=== PATIENT | female | born 1980 | race Caucasian/White ===

== ENCOUNTER → 2016-10-27 | Outpatient (CLI) | payer MEDICAID ==
[~2016-10-27] MED LIST: CEPH-583 PO; DIPH1TAB PO; DIPH1TAB24 PO; DIPH25CA84 PO; ESTR2TAB23 PO; LAMO25TA8 PO; LIDO20SO SSP; METO-277 PO; PANT40TA PO; PROM25TA7 PO; TOPI100T43 PO; VENL75TA4 PO
== END ==
LOC: NEU 12:27
PROVIDERS: ATTEND Family Medicine
DX: G40.409 Other generalized epilepsy and epileptic syndromes, not intractable, without status epilepticus (principal)
CPT/HCPCS: 95816

== ENCOUNTER 2016-10-31 21:16 | Emergency (ER) | payer MEDICAID ==
[~2016-10-31] VITALS: Ht 175.3 cm; Wt 98.7 kg
[~2016-10-31 21:16] MED LIST changes: -DIPH1TAB24 PO; -LAMO25TA8 PO; -LIDO20SO SSP; -PROM25TA7 PO; -VENL75TA4 PO
--- OUTSIDE RECORDS SUMMARY | 2016-10-31 21:20 | XMS REPORT | Continuity of Care Document ---
Author Author Via [facility] [employer] Organization Via [facility]. Address Unknown Phone Unavailable Allergies Active Description Code Type Severity Reaction Onset Reported/Identified Relationship to Patient Clinical Status Yes Lorazepam X357 Drug Allergy Unknown N/A 11/18/2000 Yes Food Allergies: Food Allergies: Drug Allergy Unknown N/A 04/27/2011 Yes Medication Allergies: Medication Allergies: Drug Allergy Unknown N/A 04/27/2011 Yes Haloperidol X485 Drug Allergy Unknown "I get crazy" 09/29/2014 Yes PCN (penicillin) X20 Drug Allergy Unknown Rash 09/29/2014 Yes Prochlorperazine X490 Drug Allergy Unknown can't talk, los 09/29/2014 Medications Problems Date Dx Coded Attending Type Code Diagnosis Diagnosed By 09/29/2014 A 368.11 09/29/2014 W 793.0 Procedures Results Encounters ACCT No. Visit Date/Time Discharge Status Pt. Type Provider Facility Loc./Unit Complaint [id number] 01/31/2014 11:58:00 2013 23:59:59 [facility] Outpatient [id number] 09/29/2014 07:56:00 Document Registration
[2016-10-31 21:53] VITALS: Ht 175.3 cm; Wt 98.7 kg
--- NOTE | 2016-10-31 22:21 | ERPDOC ---
Departure Disposition Decision Date: Nov 01, 2016 Disposition Decision Time: 00:53 (MADDIE YOUSIF APRN) Disposition: 01 DISCHARGED HOME, SELF-CARE Impression Impression (MADDIE YOUSIF APRN) Impression: Primary Impression: Gastroenteritis Severity: Moderate (MADDIE YOUSIF APRN) Condition: Improved Seen By: Mid-level only (MADDIE YOUSIF APRN) Referrals: UMA JEFFERS MD (Family) Patient Instructions: Gastroenteritis (ED) Problems/Meds/Labs Reviewed?: Yes Medications reviewed and manag: Yes (MADDIE YOUSIF APRN) Additional Instructions: Take Phenergan every 6 hours for nausea and vomiting. You may take 1-2 [place] 5/325 mg as needed for abdominal cramping. Clear liquids tonight and then you may advance her diet as tolerated tomorrow. Follow treatment plan. Follow with your PCP early next week if your symptoms are not improving for reevaluation. Follow up care ordered?: Yes Mental Status: Alert, Oriented (MADDIE YOUSIF APRN) Scripts Promethazine HCl (Promethazine HCl) 25 Mg Tablet 1 TAB-CAP PO Q6HPRN, #30 Prov: MADDIE YOUSIF APRN 11/01/16 HPI - Abdominal Pain General Chief Complaint: Abdominal Pain Stated Complaint: ABD PAIN, VOMITING Time Seen by Provider: 22:17 Source: patient (MADDIE YOUSIF APRN) Time Seen by Provider: 22:17 (KELLY STEPHENS MD) HPI - Abdominal Pain Initial Comments 36 YO F presents to ED with complaint of generalized malaise, sore throat, cough , body aches, nausea, vomiting, diarrhea, generalized abdominal pain and generalized body aches. Patient is sleeping when I enter exam room. Significant other with patient reports that she was at [facility] today and had a narcolepsy attack. Patient has to be awakened to obtain HPI. Patient states that all except diarrhea started early this morning at 0600. Patient denies fever, chills, runny nose, shortness of breath, dysuria. Significant other reports that patient has been being worked up for seizures recently. Pain Scale: Now: 7/10, 10/10 (patient has to be awakened to get patient to rate pain) Quality: cramping Location: generalized abdomen Radiation: no radiation Associated Symptoms: nausea/vomiting, DENIES: back pain, chest pain, diaphoresis, fatigue, fever/chills, headache, shortness of breath, swelling/ mass in abdomen (MADDIE YOUSIF DRAWBENCH OPERATOR) Allergies: Coded Allergies: lorazepam (Verified Allergy, Severe, ERRATIC LIMB MOVEMENT, 10/31/16) prochlorperazine edisylate (Verified Allergy, Severe, LOCKJAW, 10/31/16) prochlorperazine maleate (Verified Allergy, Severe, LOCKJAW, 10/31/16) Penicillins (Verified Allergy, Unknown, RASH, 10/31/16) Past History Past Medical History Metabolic: DENIES: diabetes Cardiac: DENIES: angina Respiratory: DENIES: asthma GI: DENIES: ulcers Female: DENIES: renal insufficiency Neurological: DENIES: seizures Musculoskeletal: lupus Psychological: DENIES: depression (MADDIE YOUSIF DRAWBENCH OPERATOR) Surgical History General: other, tonsils Reproductive/: D&C, hysterectomy, other Joint: hip (MADDIE YOUSIF DRAWBENCH OPERATOR) Social History Substance Use Type: does not use Alcohol Intake: none (MADDIE YOUSIF DRAWBENCH OPERATOR) Review of Systems Constitutional Constitutional: fever, DENIES: chills, dizziness, weakness (MADDIE YOUSIF DRAWBENCH OPERATOR) Eyes General: DENIES: erythema, exudate Lids/Accessories: DENIES: erythema, swelling (MADDIE YOUSIF DRAWBENCH OPERATOR) ENMT Ears: DENIES: pain Sinuses: congestion, rhinorrhea Mouth/Throat: sore throat (MADDIE YOUSIF A DRAWBENCH OPERATOR) Cardiovascular Cardiac: DENIES: chest pain, murmur Rhythm/Rate: DENIES: palpitations (MADDIE YOUSIF DRAWBENCH OPERATOR) Pulmonary Respiratory: DENIES: cough, dyspnea (MADDIE YOUSIF DRAWBENCH OPERATOR) GI Upper Abdomen: nausea, vomiting, DENIES: pain Lower Abdomen: diarrhea, DENIES: pain (TAYLOR YOUSIFS A DRAWBENCH OPERATOR) General: DENIES: dysuria, pain (MADDIE YOUSIF A DRAWBENCH OPERATOR) Musculoskeletal General: DENIES: joint pain, pain, tenderness (MADDIE YOUSIF DRAWBENCH OPERATOR) Integumentary Skin: DENIES: color change, itching, rash (MADDIE YOUSIF A DRAWBENCH OPERATOR) Neurological General: DENIES: ataxia, change in strength, numbness, paralysis/paresis, weakness (YOUSIF,MADDIE A DRAWBENCH OPERATOR) Psychiatric Psychiatric: DENIES: anxiety, depression, nervousness (MADDIE YOUSIF APRN) Physical Exam General General Nourishment: well nourished, well developed, no acute distress, adult, obese General Body Habitus: well groomed (MADDIE YOUSIF APRN) Vitals and Pain First Documented Vital Signs Date Time Temp Pulse Resp B/P Pulse Ox O2 Delivery O2 Flow Rate FiO2 10/31/16 21:53 96.7 59 20 126/64 99 Room Air (KELLY STEPHENS MD) Vitals and Pain Weight: Kilograms: Height (feet): 5 Height (inches): 9.00 Triage Pain Scale: (MADDIE YOUSIF APRN) Eyes (brief) Eyes Brief: found: EOMI, PERRL (MADDIE YOUSIF APRN) ENMT (brief) ENMT Brief: FOUND: TM clear, TM good light reflex, mucosa moist, NOT FOUND: nasal exudate, nasal swelling, pharnyx erythema (MADDIE YOUSIF APRN) Neck (brief) Neck: FOUND: trachea midline, NOT FOUND: adenopathy, spasm, tenderness, thyromegaly (MADDIE YOUSIF DRAWBENCH OPERATOR) Respiratory (brief) Respiratory: FOUND: clear all wade, equal bilaterally, symmetrical (MADDIE YOUSIF DRAWBENCH OPERATOR) Cardiovascular (brief) Cardiac: FOUND: regular rate, regular rhythm Pulses: strong (MADDIE YOUSIF APRN) Abdomen Inspection: NOT FOUND: distention Palpation: FOUND: soft, NOT FOUND: hepatomegaly, splenomegaly, tender Auscultation: FOUND: normoactive (x4) (MADDIE YOUSIF APRN) Musculoskeletal (brief) Musculoskeletal Brief: NOT FOUND: deformity, tenderness (MADDIE YOUSIF DRAWBENCH OPERATOR) Integumentary (brief) Integumentary Brief: FOUND: dry, pink, warm (MADDIE YOUSIF DRAWBENCH OPERATOR) Neurologic (brief) Neurological Brief: FOUND: CN w/o gross def to obs, motor-no gross deficits, sensory-no gross deficits (MADDIE YOUSIF DRAWBENCH OPERATOR) Psychiatric (brief) Psychiatric Brief: FOUND: alert, normal affect, oriented (MADDIE YOUSIF APRN ) Differential Diagnoses Considering: Constipation, Diverticulitis, Gastroenteritis, UTI, Other (viral syndrome, influenza) (MADDIE YOUSIF APRN) Progress Results/Orders Medications Current ED Medications Sodium Chloride (Normal Saline IV) 1,000 ml @ 0 mls/hr Q0M ONCE IV Last administered on 10/31/16 23:20; Start 10/31/16 at 22:40; Stop 10/31/16 at 22:44 ; Status DC Promethazine HCl (Phenergan) 25 mg O ONCE IV Last administered on 10/31/16 23 :21; Start 10/31/16 at 22:45; Stop 10/31/16 at 22:46; Status DC Morphine Sulfate (Morphine) 4 mg O ONCE IV Last administered on 10/31/16 23: 21; Start 10/31/16 at 22:45; Stop 10/31/16 at 22:46; Status DC Ketorolac Tromethamine (Toradol) 30 mg O ONCE IV Last administered on 00:02; Start 10/31/16 at 23:45; Stop 10/31/16 at 23:46; Status DC Metoclopramide HCl (Reglan) 10 mg O ONCE PO Last administered on 11/01/16 00: 03; Start 11/01/16 at 00:15; Stop 11/01/16 at 00:16; Status DC Acetaminophen/ Hydrocodone Bitart (NORCO 5 (PrePack)) 1 pack O ONCE SENT HOME Last administered on 11/01/16 01:31; Start 11/01/16 at 01:00; Stop 11/01/16 at 01:01; Status DC Promethazine HCl (PHENERGAN 25mg TAB (PrePack)) 1 pack O ONCE SENT HOME Last administered on 11/01/16 01:00; Start 11/01/16 at 01:00; Stop 11/01/16 at 01:01 ; Status DC (KELLY STEPHENS MD) Progress Progress CBC normal chemistry panel unremarkable UA unremarkable Negative for influenza for strep Patient is feeling better after fluids, morphine and Reglan. I discussed labs and answer questions with patient. Patient symptoms consistent with viral syndrome or gastroenteritides. Patient with prefer Rx for promethazine for nausea and vomiting. Patient verbalized understanding of treatment plan, follow -up with PCP if symptoms are not improving in next 2-3 days and return precautions. (MADDIE YOUSIF APRN) MADDIE YOUSIF APRN Oct 31, 2016 22:21 KELLY STEPHENS MD Nov 02, 2016 02:48 Creatinine 0.6MG/DL Glomerular Filtration Rate Calc 113 BUN/Creatinine Ratio 17RATIO Glucose Level 106MG/DL Calculated Osmolality 276MOSM/KG Calcium Level 9.5MG/DL Total Bilirubin 0.70MG/DL Icterus Index < 2 Aspartate Amino Transf (AST/SGOT) 38U/L Alanine Aminotransferase (ALT/SGPT) 44U/L Alkaline Phosphatase 69U/L Total Protein 7.9G/DL Albumin 4.2G/DL Globulin 3.7G/DL Albumin/Globulin Ratio 1.1RATIO Lipase 68U/L Chemistry Specimen Hemolysis 37 Urine Collection Type Voided-not cc-midstr Urine Color Yellow Urine Turbidity Sl cloudy Urine pH 7.5 Urine Specific [place] 1.010 Urine Protein Negative Urine Glucose (UA) Negative Urine Ketones Negative Urine Blood Negative Urine Nitrite Negative Urine Bilirubin Negative Urine Urobilinogen 0.2EU/DL Urine Leukocyte Esterase Negative Urinalysis Comment Microscopic not ind. Medications Current ED Medications Sodium Chloride (Normal Saline IV) 1,000 ml @ 0 mls/hr Q0M ONCE IV Last administered on 10/31/16 23:20; Start 10/31/16 at 22:40; Stop 10/31/16 at 22:44 ; Status DC Promethazine HCl (Phenergan) 25 mg O ONCE IV Last administered on 10/31/16 23 :21; Start 10/31/16 at 22:45; Stop 10/31/16 at 22:46; Status DC Morphine Sulfate (Morphine) 4 mg O ONCE IV Last administered on 10/31/16 23: 21; Start 10/31/16 at 22:45; Stop 10/31/16 at 22:46; Status DC Ketorolac Tromethamine (Toradol) 30 mg O ONCE IV Last administered on 00:02; Start 10/31/16 at 23:45; Stop 10/31/16 at 23:46; Status DC Metoclopramide HCl (Reglan) 10 mg O ONCE PO Last administered on 11/01/16 00: 03; Start 11/01/16 at 00:15; Stop 11/01/16 at 00:16; Status DC MADDIE YOUSIF APRN Oct 31, 2016 22:21
--- OUTSIDE RECORDS SUMMARY | 2016-10-31 22:36 | XMS REPORT | Continuity of Care Document ---
Author Author Via [facility] [employer] Organization Via [facility]. Address Unknown Phone Unavailable Allergies Active Description [...] Status Pt. Type Provider Facility Loc./Unit Complaint [id number] 01/31/2014 11:58:00 2013 23:59:59 [facility] Outpatient [id number] 09/29/2014 07:56:00 Document Registration
[2016-10-31] MEDS ORDERED: NORMAL SALINE 1,000 ML IV ONE (22:40)
[2016-10-31] MEDS ORDERED: MORPHINE SULFATE 4 MG SYRINGE IV ONE (22:45)
[2016-10-31] MEDS ORDERED: PROMETHAZINE 25 MG INJECTION IV ONE (22:45)
[2016-10-31 23:13] LABS: BASOPHILS % (AUTO) 0.2 % (0-2); EOSINOPHILS # (AUTO) 0.1 T/MM3 (0-0.5); HCT - HEMATOCRIT 41.8 % (36-46); HGB - HEMOGLOBIN 13.7 GM/DL (12-16); IMMATURE GRANULOCYTE # (AUTO) 0.01 T/MM3 (0.00-0.03); IMMATURE GRANULOCYTE % (AUTO) 0.1 % (0.0-0.5); LYMPHOCYTES # (AUTO) 3.2 T/MM3 (1-4.8); LYMPHOCYTES % (AUTO) 33.5 % (23-45); MEAN CORPUSCULAR HGB 30.7 UUG (26-34); MEAN CORPUSCULAR HGB CONC(MCHC 32.8 GM/DL (31-37); MEAN CORPUSCULAR VOLUME 93.7 UM3 (80-100); MEAN PLATELET VOLUME 8.8 UM3 (9.4-12.4); MONOCYTES # (AUTO) 0.5 T/MM3 (0-0.8); MONOCYTES % (AUTO) 5.1 % (0-9.0); NEUTROPHILS #(AUTO)-ABSOLUTE 5.7 T/MM3 (1.8-7.7); NEUTROPHILS % (AUTO) 60.1 % (33-66); RED BLOOD COUNT 4.46 M/MM3 (4.00-5.20); WBC - WHITE BLOOD COUNT 9.4 T/MM3 (4.5-11.0)
[2016-10-31 23:16] LABS: INFLUENZA A AG SCREEN NEGATIVE (NEGATIVE); INFLUENZA B AG SCREEN NEGATIVE (NEGATIVE)
[2016-10-31 23:21] LABS: ALBUMIN 4.2 G/DL (3.5-5.0); ALBUMIN/GLOBULIN RATIO 1.1 RATIO (1.1-2.2); ALKALINE PHOSPHATASE 69 U/L (38-126); ALT (SGPT) 44 U/L (9-52); ANION GAP 11 MEQ/L (5-15); AST (SGOT) 38 U/L (14-36); BUN/CREATININE RATIO 17 RATIO (6-26); CALCIUM 9.5 MG/DL (8.4-10.2); CHLORIDE 112 MEQ/L (98-107); CO2 - CARBON DIOXIDE 21 MEQ/L (22-30); CREATININE 0.6 MG/DL (0.7-1.2); GLOMERULAR FILTRATION RATE 113; GLUCOSE 106 MG/DL (65-110); LIPASE 68 U/L (23-300); POTASSIUM 3.9 MEQ/L (3.6-5); SODIUM 144 MEQ/L (134-144); TOTAL PROTEIN 7.9 G/DL (6.3-8.2)
[2016-10-31] MEDS ORDERED: KETOROLAC 30mg/ml INJECTION IV ONE (23:45)
[2016-10-31] MEDS ORDERED: DIPH1TAB24 PO (23:56)
[2016-10-31] MEDS ORDERED: LAMO25TA8 PO (23:56)
[2016-10-31] MEDS ORDERED: VENL75TA4 PO (23:56)
[2016-10-31] MEDS ORDERED: LIDO20SO SSP (23:56)
[2016-11-01 00:38] LABS: BLOOD, URINE NEGATIVE (NEGATIVE); COLOR,URINE YELLOW (YELLOW); LEUKOCYTE ESTERASE ,URINE NEGATIVE (NEGATIVE); NITRITE,URINE NEGATIVE (NEGATIVE); UROBILINOGEN,URINE 0.2 EU/DL (NORMAL)
[2016-11-01] MEDS ORDERED: PROM25TA7 PO (00:56)
[2016-11-01] MEDS ORDERED: HYDROCODONE/APAP 5/325 (PrePack) SENT HOME ONE (01:00)
[2016-11-01] MEDS ORDERED: PROMETHAZINE 25 MG SENT HOME ONE (01:00)
[2016-11-01 01:35] VITALS: BP 117/65; PULSE 61; RESP 12; TEMP 97.8; O2SAT 97
== END 2016-11-01 01:35 | disposition home or self-care (01) ==
LOC: ED 21:16
DX: K52.9 Noninfective gastroenteritis and colitis, unspecified (principal)
CPT/HCPCS: 36000; 80053; 81003; 83690; 85025; 87081; 87400; 87430; 96361; 96374; 96375; 99284; J1885; J2550; J7030

== ENCOUNTER 2016-11-16 15:33 | Emergency (ER) | payer MEDICAID ==
[~2016-11-16] VITALS: Ht 175.3 cm; Wt 65.9 kg
[~2016-11-16 15:33] MED LIST changes: -CEPH-583 PO; -DIPH1TAB PO; +DIPH1TAB24 PO; +LAMO25TA8 PO; +LIDO20SO PO; +PROM25TA7 PO; +VENL75TA4 PO
--- OUTSIDE RECORDS SUMMARY | 2016-11-16 15:45 | XMS REPORT | Continuity of Care Document ---
Author Author [facility] Organization [facility] Address Unknown Phone Unavailable Support Name Relationship Address Phone UMA JEFFERS MD Caregiver [address] [place] [id number] Unavailable KELLY STEPHENS MD Caregiver [address] [place] [address] [place] [address] Unavailable ALEXANDER TRACY Next Of Kin Unknown [phone] Insurance Providers Guarantor Marisela Mcintyre Address [address] [place] [address] Email [email or web address] Payroll Payer [facility] Community Plan Policy Number [id number] Subscriber's Name Jeromy PereiraольгаMarisela Iván Relationship 18 Self Effective Date 16 Expiration Date 16 Chief Complaint and Reason for Visit Chief Complaint Abdominal Pain Reason for Visit Gastroenteritis Problems Past Problems Medical Problem Onset Date Gastroenteritis Unknown Transient loss of consciousness Unknown Medications Current Home Medications Medication Dose Units Route Directions Days Qty Instructions Start Date Diphenhydramine Hcl (Benadryl) 25 Mg Capsule 100 Mg Oral Bedtime 09/23/16 Diphenoxylate Hcl/Atropine (Diphenoxylate-Atrop 2.5-0.025) 1 Each Tablet 2 Tab Oral Bedtime 60 10/31/16 Estradiol 2 Mg Tablet 1.5 Tab Oral Daily 11/04/10 Lamotrigine 25 Mg Tablet 3 Tab Oral Twice A Day 156 10/31/16 Lidocaine Hcl (Lidocaine 2% Viscous Oral Solution) 1 Ml Solution 1 Applic Swish And Spit as needed for Pain 100 10/31/16 Metoprolol Succinate 50 Mg Tab.er.24h 75 Mg Oral Daily 09/23/16 Pantoprazole Sodium (Protonix) 40 Mg Tablet.dr 40 Mg Oral Bedtime Take 1 tablet, by mouth, one time a day before breakfast. 09/23/16 Promethazine Hcl 25 Mg Tablet 1 Tab-Cap Oral Every 6 Hr Prn 30 Topiramate 100 Mg Tablet 100 Mg Oral Qd Take 1 tablet, by mouth, 2 times a day. 09/23/16 Venlafaxine Hcl 75 Mg Tablet 1 Tab Oral Daily 28 10/31/16 Past Home Medications Medication Directions Ordered Status Cephalexin (Keflex) 500 Mg Capsule, 1 Cap Oral Three Times A Day 09/23/16 Discontinued Diphenoxylate Hcl/Atropine (Lomotil 2.5-0.025 Mg Tablet) 1 Each Tablet, 2 Tab Oral Bedtime 09/23/16 Discontinued Social History Social History Problem Response Recorded Date/Time Onset Date Status Hx Substance Use No 10/31/2016 11:34pm Not Applicable Not Applicable Hx Alcohol Use No 10/31/2016 11:34pm Not Applicable Not Applicable Query Response Start Date Stop Date Smoking Status Never smoker Hospital Discharge Instructions No hospital discharge instructions. Plan of Care Discharge Date 11/01/16 1:35am Disposition 01 DISCHARGED HOME, SELF-CARE Condition at Discharge Improved Instructions/Education Provided Gastroenteritis (ED) Prescriptions See Medication Section Referrals UMA JEFFERS MD Address: [address] [place], [place] [id number] Additional Instructions/Education Take Phenergan every 6 hours for nausea and vomiting. You may take 1-2 [place] 5/325 mg as needed for abdominal cramping. Clear liquids tonight and then you may advance her diet as tolerated tomorrow. Follow treatment plan. Follow with your PCP early next week if your symptoms are not improving for reevaluation. Care Plan and Goals Physician Care Plan Problem: Gastroenteritis Goal: Follow up with primary care provider Instructions: Take medications and follow care plan as discussed/written Functional Status No functional status results. Allergies, Adverse Reactions, Alerts Allergen Type Severity Reaction Status Last Updated prochlorperazine edisylate Allergy Severe LOCKJAW Active 10/31/16 prochlorperazine maleate Allergy Severe LOCKJAW Active 10/31/16 Penicillin Allergy Unknown RASH Active 10/31/16 Lorazepam Allergy Severe ERRATIC LIMB MOVEMENT Active 10/31/16 Immunizations No immunization records. Vital Signs Acute Vital Signs Vital Response Date/Time Temperature (Fahrenheit) 97.8 deg F (96.8 - 99.1) 11/01/2016 1:35am Temperature (Calculated Celsius) 36.39921 degrees C (36.0 - 37.3) 11/01/2016 1:35am Pulse Rate (adult) 61 bpm (60 - 100) 11/01/2016 1:35am Respiratory Rate 12 breaths/min (10 - 20) 11/01/2016 1:35am O2 Sat by Pulse Oximetry 97 % (90 - 100) 11/01/2016 1:35am Blood Pressure 117/65 mm Hg 11/01/2016 1:35am Height (Feet) 5 feet 10/31/2016 9:53pm Height (Inches) 9.00 inches 10/31/2016 9:53pm Weight (Kilograms) 98.700 kg 10/31/2016 9:53pm Body Mass Index (BMI) 32.0 10/31/2016 9:53pm Results Laboratory Results Test Name Result Units Flags Reference Collection Date/Time Result Date/ Time Comments Urine WBC 0-1 /HPF 0-5 09/23/2016 4:49pm 09/23/2016 5:03pm Urine RBC 0-1 /HPF 0-3 09/23/2016 4:49pm 09/23/2016 5:03pm Urine Squamous Epithelial Cells 10-20 09/23/2016 4:49pm 09/23/2016 5:03pm Urine Bacteria 4+ H NEGATIVE 09/23/2016 4:49pm 09/23/2016 5:03pm Urine Mucus PRESENT 09/23/2016 4:49pm 09/23/2016 5:03pm Urine Culture Indicated CULT REFLEXED &SETUP 09/23/2016 4:49pm 5:03pm White Blood Count 9.4 T/MM3 4.5-11.0 10/31/2016 11:05pm 10/31/2016 11: 13pm Red Blood Count 4.46 M/MM3 4.00-5.20 10/31/2016 11:05pm 10/31/2016 11: 13pm Hemoglobin 13.7 GM/DL 12-16 10/31/2016 11:05pm 10/31/2016 11:13pm Hematocrit 41.8 % 36-46 10/31/2016 11:05pm 10/31/2016 11:13pm Mean Corpuscular Volume 93.7 UM3 80-100 10/31/2016 11:05pm 10/31/2016 11:13pm Mean Corpuscular Hemoglobin 30.7 UUG 26-34 10/31/2016 11:05pm 2016 11:13pm Mean Corpuscular Hemoglobin Concent 32.8 GM/DL 31-37 10/31/2016 11:05pm 10/31/2016 11:13pm RDW Standard Deviation 43.9 FL 36.9-50.2 10/31/2016 11:05pm 10/31/2016 11:13pm Platelet Count 220 T/MM3 130-400 10/31/2016 11:05pm 10/31/2016 11:13pm Mean Platelet Volume 8.8 UM3 L 9.4-12.4 10/31/2016 11:05pm 10/31/2016 11 :13pm Neutrophils (%) (Auto) 60.1 % 33-66 10/31/2016 11:05pm 10/31/2016 11: 13pm Lymphocytes (%) (Auto) 33.5 % 23-45 10/31/2016 11:05pm 10/31/2016 11: 13pm Monocytes (%) (Auto) 5.1 % 0-9.0 10/31/2016 11:05pm 10/31/2016 11:13pm Eosinophils (%) (Auto) 1.0 % 0-4 10/31/2016 11:05pm 10/31/2016 11:13pm Basophils (%) (Auto) 0.2 % 0-2 10/31/2016 11:05pm 10/31/2016 11:13pm Immature Granulocyte % (Auto) 0.1 % 0.0-0.5 10/31/2016 11:05pm 2016 11:13pm Absolute Neutrophils (auto) 5.7 T/MM3 1.8-7.7 10/31/2016 11:05pm 2016 11:13pm Absolute Lymphocytes (auto) 3.2 T/MM3 1-4.8 10/31/2016 11:05pm 2016 11:13pm Absolute Monocytes (auto) 0.5 T/MM3 0-0.8 10/31/2016 11:05pm 2016 11:13pm Absolute Eosinophils (auto) 0.1 T/MM3 0-0.5 10/31/2016 11:05pm 2016 11:13pm Absolute Basophils (auto) 0.0 T/MM3 0-0.2 10/31/2016 11:05pm 2016 11:13pm Absolute Immature Granulocyte (auto 0.01 T/MM3 0.00-0.03 10/31/2016 11: 05pm 10/31/2016 11:13pm Icterus Index < 2 0-7 10/31/2016 11:05pm 10/31/2016 11:21pm Chemistry Specimen Hemolysis 37 H 0-25 10/31/2016 11:05pm 10/31/2016 11:21pm 26-70: Specimen Exhibited Slight Hemolysis - can falsely elevate K (Potassium) and Urine Protein. Turbidity < 20 0-20 10/31/2016 11:05pm 10/31/2016 11:21pm Sodium Level 144 MEQ/L 134-144 10/31/2016 11:05pm 10/31/2016 11:21pm Potassium Level 3.9 MEQ/L 3.6-5 10/31/2016 11:05pm 10/31/2016 11:21pm Chloride Level 112 MEQ/L H 98-107 10/31/2016 11:05pm 10/31/2016 11:21pm Carbon Dioxide Level 21 MEQ/L L 22-30 10/31/2016 11:05pm 10/31/2016 11: 21pm Anion Gap 11 MEQ/L 5-15 10/31/2016 11:05pm 10/31/2016 11:21pm Blood Urea Nitrogen 10.0 MG/DL 7-17 10/31/2016 11:05pm 10/31/2016 11: 21pm Creatinine 0.6 MG/DL L 0.7-1.2 10/31/2016 11:05pm 10/31/2016 11:21pm BUN/Creatinine Ratio 17 RATIO 6-26 10/31/2016 11:05pm 10/31/2016 11: 21pm Glomerular Filtration Rate Calc 113 10/31/2016 11:05pm 10/31/2016 11:21pm Glucose Level 106 MG/DL 65-110 10/31/2016 11:05pm 10/31/2016 11:21pm Calculated Osmolality 276 MOSM/KG 261-280 10/31/2016 11:05pm 2016 11:21pm Calcium Level 9.5 MG/DL 8.4-10.2 10/31/2016 11:05pm 10/31/2016 11:21pm Total Bilirubin 0.70 MG/DL 0.20-1.30 10/31/2016 11:05pm 10/31/2016 11: 21pm Alkaline Phosphatase 69 U/L 38-126 10/31/2016 11:05pm 10/31/2016 11: 21pm Total Protein 7.9 G/DL 6.3-8.2 10/31/2016 11:05pm 10/31/2016 11:21pm Albumin 4.2 G/DL 3.5-5.0 10/31/2016 11:05pm 10/31/2016 11:21pm Globulin 3.7 G/DL H 2.4-3.6 10/31/2016 11:05pm 10/31/2016 11:21pm Albumin/Globulin Ratio 1.1 RATIO 1.1-2.2 10/31/2016 11:05pm 10/31/2016 11:21pm Aspartate Amino Transf (AST/SGOT) 38 U/L H 14-36 10/31/2016 11:05pm 11:21pm Alanine Aminotransferase (ALT/SGPT) 44 U/L 9-52 10/31/2016 11:05pm 11:21pm Lipase 68 U/L 23-300 10/31/2016 11:05pm 10/31/2016 11:21pm Group A Streptococcus Screen NEGATIVE NEGATIVE 10/31/2016 10:47pm 11:02pm Strep culture confirmation to follow Influenza Type A Antigen NEGATIVE NEGATIVE 10/31/2016 10:47pm 2016 11:16pm Negative for Flu A protein antigen. Assay sensitivity is 90%. Influenza Type B Antigen NEGATIVE NEGATIVE 10/31/2016 10:47pm 2016 11:16pm Negative for Flu B protein antigen. Assay sensitivity is 90%. Urine Collection Type VOIDED-NOT CC-MIDSTR 11/01/2016 12:32am 11/01 12:38am Urine Color YELLOW YELLOW 11/01/2016 12:32am 11/01/2016 12:38am Urine Turbidity SL CLOUDY CLEAR 11/01/2016 12:32am 11/01/2016 12: 38am Urine Specific [place] 1.010 L 1.015-1.025 11/01/2016 12:32am 2016 12:38am Urine pH 7.5 5.0-8.0 11/01/2016 12:32am 11/01/2016 12:38am Urine Leukocyte Esterase NEGATIVE NEGATIVE 11/01/2016 12:32am 2016 12:38am Urine Nitrite NEGATIVE NEGATIVE 11/01/2016 12:32am 11/01/2016 12: 38am Urine Protein NEGATIVE NEGATIVE 11/01/2016 12:32am 11/01/2016 12: 38am Urine Glucose (UA) NEGATIVE NEGATIVE 11/01/2016 12:32am 11/01/2016 12 :38am Urine Ketones NEGATIVE NEGATIVE 11/01/2016 12:32am 11/01/2016 12: 38am Urine Urobilinogen 0.2 EU/DL NORMAL 11/01/2016 12:32am 11/01/2016 12: 38am Urine Bilirubin NEGATIVE NEGATIVE 11/01/2016 12:32am 11/01/2016 12: 38am Urine Blood NEGATIVE NEGATIVE 11/01/2016 12:32am 11/01/2016 12:38am Urinalysis Comment MICROSCOPIC NOT IND. 11/01/2016 12:32am 2016 12:38am Microbiology Results Procedure Source Organism/Result Collection Date/Time Result Date/Time Result Status Urine Culture Urine, Clean Catch-Midstream ESCHERICHIA COLI 09/23/2016 5: 03pm 09/25/2016 6:42am Final Group A Streptococcus Culture Throat CULTURE INITIATED - RESULTS PENDING 11:02pm 10/31/2016 11:03pm Preliminary Procedures Procedure Status Date Provider(s) Routine venipuncture Completed 09/23/16 Ct head/brain w/o dye Completed 09/23/16 X-ray exam l-s spine 2/3 vws Completed 09/23/16 X-ray exam of ankle Completed 09/23/16 Comprehen metabolic panel Completed 09/23/16 Urinalysis auto w/scope Completed 09/23/16 Urine test Completed 09/23/16 Complete cbc w/auto diff wbc Completed 09/23/16 Urine culture/colony count Completed 09/23/16 Electrocardiogram tracing Completed 09/23/16 Emergency dept visit Completed 09/23/16 Mri lumbar spine w/o dye Completed 10/05/16 Encounters Encounter Location Arrival/Admit Date Discharge/Depart Date Attending Provider Departed Emergency Room [facility] 10/31/16 9:16pm 11/01/16 1: 35am KELLY STEPHENS MD Registered Clinic [facility] 10/27/16 12:27pm UMA JEFFERS MD Registered Clinic [facility] 10/05/16 4:40pm UMA JEFFERS MD Departed Emergency Room [facility] 09/23/16 1:47pm 09/23/16 7: 07pm SOO MADRIGAL DO Recent Diagnosis
--- OUTSIDE RECORDS SUMMARY | 2016-11-16 15:45 | XMS REPORT | Continuity of Care Document ---
Author Author Via [facility] [employer] Organization Via [facility]. Address Unknown Phone Unavailable Allergies [...] Status Pt. Type Provider Facility Loc./Unit Complaint [id number] 01/31/2014 11:58:00 2013 23:59:59 [facility] Outpatient [id number] 09/29/2014 07:56:00 Document Registration
[2016-11-16 15:58] VITALS: Ht 175.3 cm; Wt 65.9 kg
--- NOTE | 2016-11-16 16:48 | NUR ---
TO RM 2 AMB
--- NOTE | 2016-11-16 16:58 | NUR ---
REPORT TO GAEL BOB
--- OUTSIDE RECORDS SUMMARY | 2016-11-16 17:00 | XMS REPORT | Continuity of Care Document ---
Author Author Via [facility] [employer] Organization Via [facility]. Address Unknown Phone Unavailable Allergies Active Description [...] Status Pt. Type Provider Facility Loc./Unit Complaint [id number] 01/31/2014 11:58:00 2013 23:59:59 [facility] Outpatient [id number] 09/29/2014 07:56:00 Document Registration
[2016-11-16] MEDS ORDERED: ESTR1TAB21 PO (17:02)
[2016-11-16] MEDS ORDERED: METO50TA5 PO (17:07)
[2016-11-16] MEDS ORDERED: ALBU18HF2 INH (17:08)
[2016-11-16] MEDS ORDERED: PRED10TA (17:08)
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
[2016-11-16] MEDS ORDERED: ORPHENADRINE 60mg/2ml INJECTION IM ONE (17:15)
[2016-11-16] MEDS ORDERED: KETOROLAC 60mg/2ml INJECTION IM ONE (17:15)
[2016-11-16] MEDS ORDERED: NAPR500T PO (17:38)
[2016-11-16] MEDS ORDERED: CYCL-375 PO (17:38)
[2016-11-16 17:40] VITALS: BP 124/71; PULSE 79; RESP 16; TEMP 98.5; O2SAT 98
== END 2016-11-16 17:40 | disposition home or self-care (01) ==
LOC: ED 15:33
DX: M62.830 Muscle spasm of back (principal)
CPT/HCPCS: 96372; 99283; J1885; J2360

== ENCOUNTER 2017-01-05 09:08 | Emergency (ER) | payer MEDICAID ==
[~2017-01-05] VITALS: Ht 175.3 cm; Wt 92.5 kg
[~2017-01-05 09:08] MED LIST changes: +ALBU18HF2 INH; +CYCL-375 PO; -DIPH25CA84 PO; +ESTR1TAB21 PO; -ESTR2TAB23 PO; -METO-277 PO; +METO50TA5 PO; +NAPR500T PO; +PRED10TA; -VENL75TA4 PO
[2017-01-05 09:10] VITALS: Ht 175.3 cm; Wt 92.5 kg
--- OUTSIDE RECORDS SUMMARY | 2017-01-05 09:12 | XMS REPORT | Continuity of Care Document ---
Author Author [facility] Organization [facility] Address Unknown Phone Unavailable Support Name Relationship Address Phone UMA DIETZ MD Caregiver [address] [phone] Unavailable KELLY STEPHENS MD Caregiver [address] [place] [address] [place] [address] Unavailable ALEXANDER TRACY Next Of Kin Unknown [phone] Insurance Providers Guarantor Marisela Mcintyre Address [address] [place] [address] Email [email or web address] Payer [facility] Community Plan Policy Number [id number] Subscriber's Name Jeromy PereiraольгаMarisela Iván Relationship 18 Self Effective Date 16 Expiration Date 16 Chief Complaint and Reason for Visit Chief Complaint Back Pain or Injury Reason for Visit [id number] Problems Past Problems Medical Problem Onset Date Gastroenteritis Unknown Muscle spasm of back Unknown Transient loss of consciousness Unknown Medications Current Home Medications Medication Dose Units Route Directions Days Qty Instructions Start Date Albuterol Sulfate (Ventolin Hfa 90 Mcg/Actuation) 18 Gm Hfa.aer.ad 1 Puff Inhalation As Needed 11/16/16 Cyclobenzaprine Hcl 10 Mg Tablet 1 Tab Oral Three Times A Day 15 Tablet 11/16/16 Diphenoxylate Hcl/Atropine (Diphenoxylate-Atrop 2.5-0.025) 1 Each Tablet 2 Tab Oral Bedtime 10/31/16 Estradiol (Estrace) 1 Mg Tablet 1.5 Mg Oral Bedtime 11/16/16 Lamotrigine 25 Mg Tablet 100 Mg Oral Twice A Day 10/31/16 Lidocaine Hcl (Lidocaine 2% Viscous Oral Solution) 1 Ml Solution 15-20 Ml Oral Every 3 Hours as needed for Pain 10/31/16 Metoprolol Tartrate 50 Mg Tablet 75 Mg Oral Bedtime 11/16/16 Naproxen (Naprosyn) 500 Mg Tablet 1 Tab Oral Twice A Day 20 Tablet 11/16/16 Pantoprazole Sodium (Protonix) 40 Mg Tablet.dr 40 Mg Oral Bedtime 09/23/16 Prednisone 10 Mg Tablet As Needed 11/16/16 Promethazine Hcl 25 Mg Tablet 1 Tab-Cap Oral Every 6 Hr Prn 30 Topiramate 100 Mg Tablet 100 Mg Oral Bedtime 09/23/16 Past Home Medications Medication Directions Ordered Status Cephalexin (Keflex) 500 Mg Capsule, 1 Cap Oral Three Times A Day 09/23/16 Discontinued Diphenoxylate Hcl/Atropine (Lomotil 2.5-0.025 Mg Tablet) 1 Each Tablet, 2 Tab Oral Bedtime 09/23/16 Discontinued Social History Social History Problem Response Recorded Date/Time Onset Date Status Hx Substance Use No 11/16/2016 5:04pm Not Applicable Not Applicable Hx Alcohol Use No 11/16/2016 5:04pm Not Applicable Not Applicable Query Response Start Date Stop Date Smoking Status Current every day smoker Hospital Discharge Instructions No hospital discharge instructions. Plan of Care Discharge Date 11/16/16 5:40pm Disposition 01 DISCHARGED HOME, SELF-CARE Condition at Discharge Stable Instructions/Education Provided Muscle Spasm (ED) Prescriptions See Medication Section Referrals UMA DIETZ MD Address: [address] [phone] Additional Instructions/Education Take the Naproxen as prescribed. Use the Cyclobenzaprine as needed for muscle spasms as well. I do want you to use warm compresses to the area as well. Follow up with Dr Dietz if you are not improving at all. Care Plan and Goals Physician Care Plan Problem:Muscle Spasms Goal: Follow up with primary care provider Instructions: Take medications and follow care plan as discussed/written Functional Status No functional status results. Allergies, Adverse Reactions, Alerts Allergen Type Severity Reaction Status Last Updated prochlorperazine edisylate Allergy Severe LOCKJAW Active 11/16/16 prochlorperazine maleate Allergy Severe LOCKJAW Active 11/16/16 Penicillin Allergy Unknown RASH Active 11/16/16 Haloperidol Allergy Unknown HALLUCINATIONS Active 11/16/16 Immunizations No immunization records. Vital Signs Acute Vital Signs Vital Response Date/Time Temperature (Fahrenheit) 98.5 deg F (96.8 - 99.1) 11/16/2016 5:40pm Temperature (Calculated Celsius) 36.83591 degrees C (36.0 - 37.3) 11/16/2016 5:40pm Pulse Rate (adult) 79 bpm (60 - 100) 11/16/2016 5:40pm Respiratory Rate 16 breaths/min (10 - 20) 11/16/2016 5:40pm O2 Sat by Pulse Oximetry 98 % (90 - 100) 11/16/2016 5:40pm Blood Pressure 124/71 mm Hg 11/16/2016 5:40pm Height (Feet) 5 feet 11/16/2016 3:58pm Height (Inches) 9.00 inches 11/16/2016 3:58pm Weight (Kilograms) 65.900 kg 11/16/2016 3:58pm Body Mass Index (BMI) 21.0 11/16/2016 3:58pm Results Laboratory Results Test Name Result Units [...] 11/01/2016 12:32am 11/01/2016 12: 38am Urine Specific Burt 1.010 L 1.015-1.025 11/01/2016 12:32am 2016 12:38am [...] 6:42am Final Group A Streptococcus Culture Throat NO GROUP A STREP ISOLATED 10/31/2016 11:02pm 11/03/2016 7:17am Final Procedures Procedure Status Date Provider(s) Routine venipuncture [...] Completed 09/23/16 Emergency dept visit Completed 09/23/16 Eeg awake and drowsy Completed 10/27/16 Mri lumbar spine w/o dye Completed 10/05/16 Place needle in vein Completed 10/31/16 Comprehen metabolic panel Completed 10/31/16 Urinalysis auto w/o scope Completed 10/31/16 Assay of lipase Completed 10/31/16 Complete cbc w/auto diff wbc Completed 10/31/16 Culture screen only Completed 10/31/16 Influenza a/b ag ia Completed 10/31/16 Strep a ag ia Completed 10/31/16 Hydrate iv infusion add-on Completed 10/31/16 Ther/proph/diag inj iv push Completed 10/31/16 Tx/pro/dx inj new drug addon Completed 10/31/16 Tx/pro/dx inj new drug addon Completed 10/31/16 Emergency dept visit Completed 10/31/16 512905"INJECTION, KETOROLAC TROMETHAMINE, PER 15 MG" Completed 10/31/16 [id number]"INJECTION, PROMETHAZINE HCL, UP TO 50 MG" Completed 10/31/16 [id number]"INFUSION, NORMAL SALINE SOLUTION , 1000 CC" Completed 10/31/16 Encounters Encounter Location Arrival/Admit Date Discharge/Depart Date Attending Provider Departed Emergency Room [facility] 11/16/16 3:33pm 11/16/16 5: 40pm KELLY STEPHENS MD Departed Emergency Room [facility] 10/31/16 9:16pm 11/01/16 1: 35am KELLY STEPHENS MD Registered Clinic [facility] 10/27/16 12:27pm UMA DIETZ MD Registered [facility] 10/05/16 4:40pm UMA DIETZ MD Departed Emergency Room [facility] 09/23/16 1:47pm 09/23/16 7: 07pm SOO MADRIGAL DO Recent Diagnosis
--- NOTE | 2017-01-05 09:20 | NUR ---
DR MADRIGAL IN
--- NOTE | 2017-01-05 09:32 | NUR ---
TO CT PER CART
[2017-01-05] MEDS ORDERED: [UNRECOGNIZED DRUG - CODE] PO (09:36)
[2017-01-05] MEDS ORDERED: MODA200T48 PO (09:36)
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
--- NOTE | 2017-01-05 09:51 | DI ---
Indication: ITS.REASON: pain, head injury PROCEDURE: CT HEAD W/O CONTRAST: Encounter: Initial Comparison: Head CT dated September 23, 2016 Technique: Axial CT images through the head were performed without contrast. Iterative Reconstruction dose reducing technique was utilized. FINDINGS: The ventricles are of normal size, shape, and configuration for the patient's age. There is no evidence of acute intracranial hemorrhage, midline displacement, or mass effect. The CT attenuation of the brain parenchyma is normal within the cerebellum, brain stem, and cerebral hemispheres. The tympanic cavities and mastoid air cells are free of appreciable disease. There are no definite fractures of the skull base, calvarium, or visualized portion of the midface. IMPRESSION: No CT evidence of acute traumatic intracranial injury. .
--- NOTE | 2017-01-05 09:53 | DI ---
Indication: ITS.REASON: pain, injury PROCEDURE: CT CERVICAL SPINE W/O CONTRAST: Encounter: Initial Comparison: None Technique: Axial CT images through the cervical spine were performed without contrast. Coronal and sagittal reformatted images were also obtained. Automated Exposure Control and Iterative Reconstruction dose reducing techniques were utilized. FINDINGS: The alignment of the cervical spine is straightened which could be positional or due to muscular spasm/strain. There is no evidence of acute fracture or subluxation of the cervical spine. The facet joints are well aligned with preservation of the intervertebral disk and facet joints. The atlantoaxial articulation, dens, and upper cervical spine demonstrate no subluxation. There is no evidence of significant spinal stenosis, foraminal compromise, or significant disk herniation. The paraspinal soft tissues and spinal canal appear unremarkable. 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 IMPRESSION: No acute traumatic abnormality of the cervical spine. .
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
[2017-01-05] MEDS ORDERED: CIPR7.5D RIGHT EAR (10:35)
[2017-01-05] MEDS ORDERED: CLIN-89 PO (10:35)
[2017-01-05] MEDS ORDERED: HYDR-4246 PO (10:35)
[2017-01-05 10:42] VITALS: BP 111/64; PULSE 63; RESP 16; TEMP 98.3; O2SAT 99
[2017-01-05] MEDS ORDERED: ACETAMINOPHEN 500 MG TABLET PO ONE (10:45)
== END 2017-01-05 10:42 | disposition home or self-care (01) ==
LOC: ED 09:08
DX: S09.21XA Traumatic rupture of right ear drum, initial encounter (principal); Y04.2XXA Assault by strike against or bumped into by another person, initial encounter; Y93.89 Activity, other specified; Y92.009 Unspecified place in unspecified non-institutional (private) residence as the place of occurrence of the external cause; Y99.8 Other external cause status